=== PATIENT | male | born 1950 | race Caucasian/White ===

== ENCOUNTER 2020-01-21 02:39 | Inpatient (IN) ==
[2020-01-21] MEDS ORDERED: AMIDATE IV ONE (03:11)
[2020-01-21] MEDS ORDERED: QUELICIN IV ONE (03:11)
[2020-01-21] MEDS ORDERED: ROCEPHIN 1 GM in NS 50 ML IV ONE (03:15)
[2020-01-21] MEDS ORDERED: ZITHROMAX 500 MG/NS 500 MG/250 ML IVPB IV ONE (03:15)
[2020-01-21] MEDS ORDERED: LR 1,000 ML IV ONE (03:15)
[2020-01-21 03:22] LABS: BASO# 0.05 X1000 (0.0-0.2); BASO% 0.3 % (0.0-0.8); EOS# 0.01 X1000 (0.0-0.7); EOS% 0.1 % (0.0-10.0); HEMATOCRIT 54.4 % (42.0-52.0); HEMOGLOBIN 17.8 g/dL (14.0-18.0); IMM GRAN# 0.06 X1000 (0.0-0.04); IMM GRAN% 0.4 % (0.0-0.5); LYMPH# 2.39 X1000 (1.2-3.4); LYMPH% 14.5 % (20.5-51.1); MCH 32.2 PG (27-31); MCHC 32.7 g/dL (33-37); MCV 98.4 FL (81-99); MONO# 0.71 X1000 (0.11-0.59); MONO% 4.3 % (1.7-9.3); NEUT% 80.4 % (42.2-75.2); PLT 300 X1000 (130-400); RBC 5.53 XMIL (4.7-6.1); RDW 12.8 % (11.5-14.5); WBC 16.52 X1000 (4.8-10.8)
[2020-01-21] MEDS ORDERED: DIPRIVAN 1% 1,000 MG/100 ML BOTTLE ONE (03:36)
--- NOTE | 2020-01-21 03:55 | PROVIDER DOCUMENTATION ---
HPI-Respiratory General - General Chief Complaint: Shortness of Breath Stated Complaint: respiratory failure Time Seen by Provider: 01/21/20 03:09 Source: family, EMS Unable to obtain history due to:: altered Allergies/Adverse Reactions: Patient Allergies Allergy/AdvReac Type Severity Reaction Status Date / Time No Known Allergies Allergy Verified 01/21/20 04:16 Home Medications: Home Medication List Medication Instructions Recorded Confirmed Last Taken Type NK [No Home Medications] 01/21/20 01/21/20 Unknown History - History of Present Illness-Resp Nature of Presenting Problem: Patient presents via EMS. History per the . states that patient works around people who have been febrile. notes that her adult children and grandchildren have also been at their home in the past week. patient came home from work yesterday, noting that he "didn't feel good." had patient to quarantine himself away from others in the home. Per , patient called her today to tell her that he was having trouble breathing and had a productive cough. decided that she would bring him to the ED, but found patient in the floor with decrased LOC and "gasping for air." She called 911 and they discovered patient with O2 sat in the 50s%. Severity in ED: reports: severe Onset/Duration: reports: just prior to arrival Timing: reports: getting worse Context: reports: other (possible sick contact) Cough Quality/Degree: reports: severe, productive cough Episode Frequency: no prior episodes Current Respiratory Medication Therapy: Initiated none Modifying Factors: improves with: nothing Associated Symptoms: reports: cough Similar Symptoms Previously?: No Recently seen or treated by another doctor?: No Review of Systems - Adult - REVIEW OF SYSTEMS - ADULT ROS:: unobtainable per condition Constitutional: reports: no symptoms reported Past History - Adult - PAST MEDICAL HISTORY-ADULT Review of Records: reports: Old Records Reviewed, Nursing Assessment Review, Medications Reviewed, Social history reviewed & non-contributory. Major Childhood Illnesses: reports: denies history Cardiovascular: reports: denies history Respiratory: reports: denies history Gastrointestinal: reports: denies history Obstetrical/Gynecological: reports: denies history Genitourinary: reports: denies history Musculoskeletal: reports: denies history Neurological: reports: denies history Endocrine/Immune: reports: denies history Other Conditions: reports: denies history - IMMUNIZATION STATUS Childhood Immunizations: See Nurse Assessment Flu Vaccine: See Nurse Assessment - FAMILY HISTORY Family History: reviewed, not pertinent Physical Exam-General - PHYSICAL EXAM-ADULT Initial Vital Signs Reviewed: Yes - CONSTITUTIONAL General Appearance: severe distress, obtunded, other (diaphoretic) - HEAD, EARS, NOSE, MOUTH & THROAT HENMT: normocephalic/atraumatic - NECK Neck: full range of motion - RESPIRATORY Respiratory: respiratory distress, crackles - CARDIOVASCULAR Cardiovascular: tachycardia - GASTROINTESTINAL (ABDOMEN) Abdominal Exam: normal bowel sounds - SKIN Integumentary: normal turgor, diaphoresis Progress - PLAN OF CARE/RESULTS Progress/Plan/Lab Results: Vital Signs - 8 hr 01/21/20 02:45 01/21/20 02:55 Temperature 99.9 F H Pulse Rate 128 H 130 H Respiratory Rate 24 18 Blood Pressure 102/90 101/78 O2 Sat by Pulse Oximetry 87 L 01/21/20 04:20 Influenza Screen - Final Nasopharyngeal Laboratory Results - last 24 hr 01/21/20 01/21/20 01/21/20 02:55 02:55 02:55 WBC 16.52 H RBC 5.53 Hgb 17.8 Hct 54.4 H MCV 98.4 MCH 32.2 H MCHC 32.7 L RDW Std Deviation 12.8 Plt Count 300 MPV 11.0 H Immature Gran % (Auto) 0.4 Neut % (Auto) 80.4 H Lymph % (Auto) 14.5 L [place] % (Auto) 4.3 Eos % (Auto) 0.1 Baso % (Auto) 0.3 Immature Gran # (Auto) 0.06 H Neut # (Auto) 13.30 H Lymph # (Auto) 2.39 [place] # (Auto) 0.71 H Eos # (Auto) 0.01 Baso # (Auto) 0.05 Sodium 135 L Potassium 4.0 Chloride 94 L Carbon Dioxide 18 L Anion Gap 23 BUN 12 Creatinine 1.3 H Estimated GFR/1.73 m2 55 BUN/Creatinine Ratio 9 Glucose 369 H Calculated Osmolality 285 Calcium 9.2 Total Bilirubin 1.13 H AST 198 H ALT 39 Alkaline Phosphatase 111 Creatine Kinase 2207 H Creatine Kinase Index 13.6 H CK-MB (CK-2) 300.00 H Total Protein 6.8 Albumin 4.5 Globulin 2.3 Albumin/Globulin Ratio 2.0 Plasma Lactate 7.5 H* Orders Category Date Time Status Isolation Precautions Setup NOW Care 01/21/20 05:13 Active NEWS Score 2-4:Order NEWS Lactate Series NOW Care 01/21/20 03:10 Active Nursing [Misc. NRSG Communication Order] DIRECTED Care 01/21/20 03:09 Acti ve CHEST-1 VIEW [RAD] Stat Exams 01/21/20 03:[address] THORAX W/CONTRAST [CT] Stat Exams 01/21/20 03:38 Taken ABG [RESP] Routine Lab 01/21/20 04:59 Ordered BLOOD CULTURE [BLDCUL] Stat Lab 01/21/20 05:05 Ordered CBC WITH ELECTRONIC DIFF [HEME] Stat Lab 01/21/20 02:55 Completed CK PROFILE [SP CHEM] Stat Lab 01/21/20 02:55 Completed COMPREHENSIVE METABOLIC PANEL [CHEM] Stat Lab 01/21/20 02:55 Completed INFLUENZA SCREEN A/B Stat Lab 01/21/20 04:20 Completed LACTATE, PLASMA [CHEM] Stat Lab 01/21/20 02:55 Completed SPUTUM CULTURE WITH GRAM STAIN [RM] Stat Lab 01/21/20 03:14 Uncollected Strep [DIRECT STREP] Stat Lab 01/21/20 Ordered TROPONIN T HIGH SENSITIVITY Stat Lab 01/21/20 02:55 Received URINALYSIS [URINALYSIS] Stat Lab 01/21/20 05:00 Ordered Azithromycin 500 mg/Ns [Zithromax 500 mg/Ns] Med 01/21/20 03:15 Discontinued 500 mg in 250 ml IV NOW CefTRIAXONE [Rocephin] 1 gm Med 01/21/20 03:15 Discontinued 0.9% Sodium Chloride Inj [Ns] 50 ml IV NOW Etomidate [Amidate] Med 01/21/20 03:11 Discontinued 50 mg IV NOW ONE Lactated Ringers Inj [Lr] 1,000 ml Med 01/21/20 03:15 Discontinued IV 999 mls/hr Propofol [Diprivan 1%] Med 01/21/20 04:43 Discontinued 10 mg IV NOW ONE Propofol [Diprivan 1%] Med 01/21/20 03:36 Discontinued 1,000 mg in 100 ml .ROUTE As directed Propofol [Diprivan 1%] Med 01/21/20 04:45 Active 1,000 mg in 100 ml IV As Directed mls/hr Succinylcholine [Quelicin] Med 01/21/20 03:11 Discontinued 100 mg IV NOW ONE Isolation Setup - Supply Stat Oth 01/21/20 05:13 Ordered Result Diagrams: 01/21/20 02:55 01/21/20 02:55 Departure - Departure Date of Disposition Decision: 01/21/20 Time of Disposition Decision: 05:15 DIAGNOSIS: Respiratory failure Qualifiers: Chronicity: acute Respiratory failure complication: hypoxia Qualified Code(s): J96.01 - Acute respiratory failure with hypoxia Pneumonia Qualifiers: Pneumonia type: due to unspecified organism Laterality: bilateral Lung location: unspecified part of lung Qualified Code(s): J18.9 - Pneumonia, unspecified organism Disposition: ADMITTED INPATIENT 09 Certified Medical Emergency: Emergent Condition: Stable Referrals and Follow-Ups: None,PCP [Primary Care Provider] - - Critical Care Note This patient required my direct & personal management of CC.: Yes Total Time (mins): 30 Critical Care Statement: This patient required my direct personal management to treat or rule out processes, the absence of which, could potentiallly result in sudden, clinically significant life or limb threatening deterioration. Attestation - Physician/ PADMINI Attestation Patient care was provided by Advanced Practice Provider:: No The physician spent face to face time with patient:: Yes Advanced Practice Provider documentation review:: Supervising physician onsite and consulted in the evaluation and care of this patient. The physician did have a face to face encounter with the patient.
[2020-01-21 03:59] LABS: ALBUMIN 4.5 g/dL (3.5-5.0); CALCIUM 9.2 mg/dL (8.8-10.2); CREATININE 1.3 mg/dL (0.7-1.2); TOTAL BILIRUBIN 1.13 mg/dL (0.20-1.00); TOTAL PROTEIN 6.8 g/dL (6.3-8.3)
[2020-01-21 04:29] LABS: CK INDEX 13.6 (0.0-2.5)
[2020-01-21] MEDS ORDERED: DIPRIVAN 1% IV ONE (04:43)
[2020-01-21] MEDS ORDERED: DIPRIVAN 1% 1,000 MG/100 ML BOTTLE IV SCH (04:45)
[2020-01-21 05:19] LABS: ALLEN TEST YES; BLOOD TYPE ARTERIAL; HCO3-(ACT) 12.1 mmoll (20.0-26.0); METHB 0.4 % (0.0-1.5); O2(CT) 17.5 mL/dL (15.0-23.0); SAMPLE BLOOD; SRATE 15 BPM; THB 18.4 g/dL (11.5-17.4); TVOL 550 mL
[2020-01-21 05:27] LABS: PCO2(98.6) 98 mmHg (35-45); pH(98.6) 6.93 (7.35-7.45)
[2020-01-21 05:28] LABS: MODALITY VENTILATOR; O2HB 67.9 % (95.0-99.0); PO2(98.6) 46 mmHg (60-100)
[2020-01-21 05:55] LABS: URINE SOURCE CATH
[2020-01-21 06:10] LABS: BILIRUBIN URINE NEGATIVE (NEGATIVE); BLOOD URINE MODERATE (NEGATIVE); COLOR YELLOW; GLUCOSE URINE >1000 mg/dL (NEGATIVE); KETONE URINE 10 mg/dL (NEGATIVE); LEUKOCYTES URINE NEGATIVE (NEGATIVE); NITRITE URINE NEGATIVE (NEGATIVE); PROTEIN URINE 300 mg/dL (NEGATIVE); SP GRAVITY URINE 1.018; TURBIDITY URINE HAZY (CLEAR); UROBILINOGEN URINE NORMAL (NORMAL)
[2020-01-21] MEDS ORDERED: HEPARIN IV ONE ×2 (06:10→09:18)
[2020-01-21 06:15] LABS: UR EPITHELIAL CELLS <10 /HPF (<10); URINE BACTERIA NEGATIVE /HPF; URINE RBC <10 /HPF (<10); URINE WBC <10 /HPF (<10)
[2020-01-21] MEDS ORDERED: HEPARIN 25,000 UNITS/D5W 25,000 UNIT/250 ML IV.SOLN IV SCH (06:15)
[2020-01-21 06:23] LABS: URINE CRYSTALS NONE SEEN
--- NOTE | 2020-01-21 07:11 | Diag Imaging Result Doc PS360 ---
EXAM: CHEST-1 VIEW HISTORY: ETT placement TECHNIQUE: Two views COMPARISON: None. FINDINGS: There is an endotracheal tube in good position located 4 cm above the sharla. There is diffuse bilateral infiltrates. No cardiomegaly. No pleural effusions identified. IMPRESSION: Endotracheal tube in good position. Electronically signed by Rafael Stephens 01/21/2020 7:09 AM
[2020-01-21] MEDS ORDERED: LEVOPHED 8 MG in D5 1/2 NS 250 ML IV SCH (07:15)
[2020-01-21 07:22] LABS: INR 1.03; PROTIME 13.7 Seconds (11.0-16.0)
[2020-01-21 07:23] LABS: PTT 29.3 Seconds (22.3-41.8)
--- NOTE | 2020-01-21 08:13 | Diag Imaging Result Doc PS360 ---
EXAM: CT THORAX W/CONTRAST 01/21/2020 HISTORY: bilateral infiltrates TECHNIQUE: This exam was performed using automated exposure control, adjustment of mA or kV according to patient size, and/or use of iterative reconstruction technique. COMMENT: There is an endotracheal tube with its tip well above the sharla. There is no evidence of significant adenopathy. The aorta is normal in caliber. There are no filling defects in the pulmonary arteries. There is extensive calcification of the left anterior descending artery. The left ventricle is distended as is the left atrium. There is some reflux of contrast into the inferior vena cava and hepatic veins. There are bilateral pleural effusions. There is a cyst arising from the upper pole of the left kidney. There are several apparent hepatic cysts. There is dense alveolar opacification of both upper lobes and most of both lower lobes. There is some apparent groundglass opacity in the right middle lobe and lingula as well as nodular opacities. There is some motion artifact. The regional skeleton appears to be intact. IMPRESSION: Diffuse bilateral pulmonary consolidation with areas of groundglass opacity and noncalcified nodules. The possibility of atypical pneumonia or aspiration cannot be excluded. Electronically signed by Raghavendra Johns 01/21/2020 8:10 AM
--- NOTE | 2020-01-21 08:14 | HISTORY AND PHYSICAL ---
CHIEF COMPLAINT: Passed out. HISTORY OF PRESENTING COMPLAINT: The patient is a 69-year-old male with no known previous medical condition, who presents with an episode of passing out that required him to be brought in by EMS. History was essentially from the , who provided a history to the ER. As such, history is that of ER signou from the . The stated the patient has been around people that have been febrile. The patient was noted to have said that he was not feeling good but no documentation of any temperature. As such, probably just subjective fever the patient had. The patient tried to quarantine himself away from others in the house because he has been around febrile people in the past, although no known positive Covid-19 patients that the patient has been in contact with. No history of any domestic or international travel recently. The patient was planning to come to the ED but suddenly found the patient on the floor with loss of consciousness and the patient was gasping for air. Then 911 was called and discovered that the patient's O2 saturation was in the 50s. In the ER, the patient was emergently intubated. During intubation, there was a large amount of copious purulent fluid that was aspirated from the intubation, which was sent for Covid-19 testing. The hospitalist team was called to admit the patient. No known history of any chest pain or palpitations. No known history of any previous cardiac problems. ALLERGIES: No known drug allergies. HOME MEDICATIONS: No known home medications. PAST MEDICAL HISTORY: No known previous significant past medical history. FAMILY HISTORY: Could not obtain family history as the patient was already intubated at the time of seeing this patient. SOCIAL HISTORY: The patient does not smoke as documented in the medical record but could not ascertain this from the patient. REVIEW OF SYSTEMS: Could not be done as patient was already intubated at the time that I was seeing the patient. PHYSICAL EXAMINATION: VITAL SIGNS: Blood pressure was 102/90, temperature was 99.9 degrees, pulse was 128, respiratory rate was 24 and the patient was intubated to maintain adequate oxygenation and to keep respiratory airway intact. GENERAL EXAMINATION: This is an elderly male, intubated to a RASS of -1. HEENT: Not pale, anicteric, acyanosis. Mildly moist oral mucosa. CVS: S1, S2 heard. No murmurs, rubs, or gallops. RESPIRATORY: Mechanical breath sounds heard. No crepitations. No added sounds. No wheeze. ABDOMEN: No area of tenderness. Bowel sounds normoactive. No organomegaly noted. EXTREMITIES: No bilateral pedal edema noted. NEUROLOGIC: Sedated to a RASS of -2, on mechanical ventilation. SKIN: No significant skin changes noted. LABS: WBC was 16.52, hemoglobin 17.8, hematocrit 54.4, platelets are 300,000, lymphocyte percentage is 14.5, and lymphocyte count is 2.39. ABG: PH of 6.93, pCO2 of 98, PO2 was 46. CMP: Sodium 135, potassium 4, chloride 94, bicarb of 18, anion gap was 23, BUN 12, creatinine 1.3, glucose 369. Total bilirubin 1.13, AST 198, ALT 39, alkaline phosphatase 111. Creatine kinase 2207, CK-MB 300, troponin T 1398. Lactate 7.5. UA was positive for glucose greater than 1000, protein 300, blood moderate, and RBCs 10. Rapid group strep throat done was negative. Chest x-ray shows multifocal bilateral infiltrates noted. A CT of the chest done shows multiple infiltrates in both lungs in a peribronchial fashion. EKG shows a left bundle branch block with no significant ST-T changes, also interventricular conduction delays in all leads. No previous EKG to compare with. ASSESSMENT AND PLAN: This is a 69-year-old with no previous known medical condition, who has had exposure to people who have been febrile, although no confirmed positive Covid- 19 patients, who was suddenly found on the ground, gasping for air. The patient was noted to be desaturating and required emergent intubation with production of copious purulent material at the time of intubation. Workup showed a left bundle branch block on EKG, which is unclear if this is new as there is no previous EKG. Markedly elevated troponin T and leukocytosis and lactic acid as well. ACUTE DIAGNOSES: 1. Acute coronary syndrome. 2. Suspected Covid-19 infection. 3. Bilateral multifocal pneumonia. 4. Transaminitis. 5. Acute kidney injury. 6. Hyperglycemia, possibly newly diagnosed diabetes mellitus. 7. Acute hypoxic hypercapnic respiratory failure s/p Mechanical ventilation 8. Hyperbilirubinemia PLAN: 1. Acute coronary syndrome: The patient's EKG findings with markedly elevated troponin, with EKG of left bundle branch block and the patient is not known to have any previous medical condition, is suspicious that this is probably a new left bundle branch block. As such, this may be an ACS. We will consult cardiology. We will start the patient on full ACS protocol with aspirin, statin, heparin, beta tank. Holding off on any EILEEN inhibitors at this time because blood pressure is running on the low side, clopidogrel as well. We will trend troponin q.6 hours x2. We will trend EKG q.6 hours x2 and we will monitor closely. 2. Suspected Covid-19 infection. Although the patient is not febrile, but given a history of exposure to supposedly febrile people at work who are not known to be positive for Covid-19 patients, already in the emergency room, the patient was already screened for Covid-19 using the bronchial aspirate during intubation. We will continue with contact precautions, droplet precautions. Symptomatic treatment with Tylenol and the patient is already intubated. We will consult pulmonology to follow. 3. Acute hypoxic hypercapnic respiratory failure s/p Mechanical ventilation. The patient is already intubated. Arterial blood gases concerning for hypoxic, hypercarbic, hypercapnic respiratory failure. We will consult pulmonology. We will maintain adequate ventilation using mechanical ventilator. 4. Acute kidney injury. We will hydrate the patient with intravenous fluid, normal saline. I expect kidney functions to trend down to baseline. 5. Hyperglycemia, likely newly diagnosed diabetes. The patient is hyperglycemic with markedly elevated glucose. We will check an A1c. Suspect most likely the patient will be a newly diagnosed diabetic patient. This is also a risk factor for patients with acute coronary syndrome. 6. Transaminitis. Could not ascertain if the patient is a known alcoholic but AST/ALT ratio is in the alcohol pattern. Suspect most likely the patient is alcoholic. Otherwise, it could be due to a back fkow effect from pooor cardiac output following a massive AMI due to hepatic congestion. Monitor closely. 7. Bilateral multifocal pneumonia. Chest x-ray and CT chest suspicious for this, although this may be a complication of a massive heart attack causing flash pulmonary edema but given lactic acidosis and leukocytosis, we will start the patient on broad-spectrum antibiotics with vancomycin and Zosyn, and we will titrate down based on blood culture results and sputum culture results as well. 8. Hyperbilirubinemia. We will check a direct bilirubin level to ascertain if this is an obstructive pattern but I doubt this since alkaline phosphatase is not markedly elevated. Deep venous thrombosis prophylaxis. The patient is on a heparin drip. Code status. Cannot ascertain as the patient was already intubated. DISPOSITION: Admit patient to ICU. We will discharge when medically stable. The patient will need a long ICU stay for treatment. [facility] MEDICAL CENTERMarquita
--- NOTE | 2020-01-21 08:16 | EKG Report ---
Test Performed on : 01/21/2020 02:59:44 AM Test Reason : ACUTE CORONARY SYNDROME Blood Pressure : / mmHG Vent. Rate : 117 BPM Atrial Rate : 117 BPM P-R Int : 144 ms QRS Dur : 172 ms QT Int : 388 ms P-R-T Axes : 000 048 187 degrees QTc Int : 541 ms Sinus tachycardia. Left bundle branch block Abnormal ECG No previous ECGs available Unconfirmed Result
[2020-01-21] MEDS ORDERED: ZOSYN 3.375 GM in NS 50 ML IV SCH (08:49)
[2020-01-21] MEDS ORDERED: TYLENOL PO PRN (08:49)
[2020-01-21] MEDS ORDERED: PLAVIX PO SCH (08:49)
[2020-01-21] MEDS ORDERED: ZOFRAN IV PRN (08:49)
[2020-01-21] MEDS ORDERED: NS 1,000 ML IV ONE (08:49)
[2020-01-21] MEDS ORDERED: ASPIRIN PO STA (08:49)
[2020-01-21] MEDS ORDERED: VANCOMYCIN IV PER PHARMACY MISC SCH (08:49)
[2020-01-21] MEDS ORDERED: PRINIVIL PO SCH (09:00)
[2020-01-21] MEDS ORDERED: LOPRESSOR PO SCH (09:00)
[2020-01-21] MEDS ORDERED: NS 2,000 ML ONE (09:40)
[2020-01-21] MEDS ORDERED: LEVAQUIN 500 MG/D5W 500 MG/100 ML IVPB IV SCH (10:00)
[2020-01-21] MEDS ORDERED: NS 250 ML ONE (10:04)
[2020-01-21 10:07] LABS: HEMOGLOBIN A1C 5.6 % (4.8-6.0)
[2020-01-21] MEDS ORDERED: DOPAMINE 800 MG/D5W 800 MG/500 ML IV.SOLN ONE (10:21)
[2020-01-21 10:22] LABS: C REACTIVE PROT QUANT 30.18 mg/L (0.00-5.00)
[2020-01-21] MEDS ORDERED: EPINEPHRINE 4 MG in NS 250 ML IV SCH (10:45)
[2020-01-21] MEDS ORDERED: ZYVOX 600 MG/D5W 600 MG/300 ML IVPB IV SCH (11:00)
[2020-01-21 11:06] LABS: CK-MB 519.8 ng/mL (0.0-5.0)
[2020-01-21 11:08] LABS: CK INDEX 12.4 (0.0-2.5)
[2020-01-21] MEDS ORDERED: CORDARONE 150 MG/D5W 150 MG/100 ML IV.SOLN ONE (11:25)
--- NOTE | 2020-01-21 12:20 | PROGRESS NOTE ---
DATE: 01/21/2020 ADDENDUM: Mr. Feliciano coded again as I was dictating the previous note. He was coded for approximately 10 minutes. All we had was PEA and asystole with no pulse. After the 10 minute celio, we got return of spontaneous circulation but that lasted just for about 2 minutes and then he coded again. I think he has been coded for a total of over 30 minutes and he is not showing any signs of vitality. I stepped out. I spoke with the who had just come in with the palliative nurse, Ms. Tavarez. The is an ex-nurse and does understand what is going on. After over 30 minutes of resuscitation efforts that have been unfruitful, she is recommending that we discontinue CPR and ACLS protocol. The resuscitation team was notified and this was aborted. Mr. Feliciano currently, on his physical exam, his pupils are dilated and they are not responsive to light. He does not have any corneal reflex. He does not show any gag reflex. No evidence of brainstem activity. No evidence of cortical activity. There is no respiratory effort since the ET tube is removed. He also has no heart sounds. Mr. Feliciano is pronounced on 01/21/2020 at 11:38, is when everything was stopped. Family member is notified. ASSESSMENT: 1. Refractory shock, presumably cardiogenic. 2. Elevated liver enzymes associated with new left bundle branch block on electrocardiogram, abnormal echocardiogram, at least the preliminary report. These are all concerning for coronary artery disease, presumably a massive myocardial infarction. 3. Acute hypoxemic respiratory failure with imaging, suspicious of acute respiratory distress syndrome. There is a concern for Covid-19. Testing has been done. Unfortunately, it has to take some time before we get it. 4. Severe anion gap metabolic acidosis due to lactic acid from hypoperfusion, presumably cardiogenic in etiology. However, underlying sepsis cannot be entirely ruled out. Patient was already on antibiotics. 5. Multiorgan failure. cc: Juan A Abbott MD Critical time 1:[address] [facility]
--- NOTE | 2020-01-21 12:20 | CARDIOLOGY CONSULTATION ---
DATE: 01/21/2020 The patient's history was obtained from the chart. The patient was intubated and transferred to the ICU. HISTORY OF PRESENT ILLNESS: This 69-year-old gentleman was passed out at home. He was brought in by EMS. History was obtained from the chart and this was obtained from his . The gentleman had been in good health and was noted to not be feeling good for the last couple of days and had been febrile with subjective fevers. The patient tried to quarantine himself. No history of domestic or international travel. He came to the Emergency Room when the suddenly found him on the floor and 911 was called. The patient was intubated and had large copious purulent expectoration and aspirated during intubation. The patient this morning had multiple episodes of pulseless electrical activity and had been coded multiple times. He is on 3 pressors and cardiac arrest code was called following the standard protocol. ALLERGIES: No known drug allergies. REVIEW OF SYSTEM: A 14-point review of systems could not be obtained from the patient. PAST MEDICAL HISTORY: Not significant. SOCIAL HISTORY: The patient does not smoke. He lives at home. PHYSICAL EXAMINATION: Vital Signs: Blood pressure on multiple medications is 90/70 and blood pressure had dropped to 60 systolic and currently he is on multiple pressors. Neck: Jugular venous pressure could not be assessed when I saw him. Cardiovascular: First and second heart sounds were heard. Respiratory: Bibasilar crepitations are noted. Gastrointestinal: The abdomen was soft. The patient was intubated. Central nervous system assessment was not performed. ASSESSMENT AND PLAN: Mr. Raghavendra Feliciano is a 69-year-old gentleman who was healthy. He has a left bundle branch block. He had 2 days of not feeling well, feverish, and had an episode of a febrile feeling. The patient collapsed and EMT was called and the patient was intubated. CT scan results revealed multiple infiltrates in both lungs in the peribronchial region, pneumonia versus edema. ELECTROCARDIOGRAM: Left bundle branch block. WBC is 16.5, hemoglobin 17.8, hematocrit 54, and platelet count 300,000. Sodium is 135, potassium 4, chloride 94, bicarb 18, anion gap 23, BUN 12, creatinine 1.3, total bilirubin 1.13, AST 198, ALT 39, alkaline phosphatase 111, creatine kinase 2207, CK-MB 3, troponin T 1398, and lactate 7.5. ECHOCARDIOGRAM: Severe LV dysfunction. Please see detailed echocardiogram report. DIAGNOSES: 1. Suspected Coronavirus infection. Results are pending. 2. Bilateral multifocal pneumonia vs pulmonary edema 3. Transaminitis. 4. Acute kidney injury. 5. Acute coronary syndrome. Left ventricular dysfunction please see detailed report with LBBB 6. The patient has had multiple episodes of cardiac arrests requiring cardiopulmonary resuscitation and per standard protocol is on epinephrine, Levophed, and a dopamine drip. Blood pressure is 70 systolic. The hospitalist service is going to discuss the code status with the patient's family. 7. The patient has bilateral multifocal pneumonia. This could be pneumonia versus and associated pulmonary edema. 8. Poor prognosis. cc: Michael Cassidy MD MTDD
[2020-01-21 12:47] VITALS: BP 82/48
--- NOTE | 2020-01-21 13:30 | PULMONOLOGY PROGRESS NOTE ---
DATE: 01/21/2020 The patient is a 69-year-old male who had presented to the emergency room with florid hypoxemic respiratory failure and was in ICU bed #4 on mechanical ventilation. I was seeing a patient in the ICU bed 3. I was already in a full isolation PPE when a Code Blue was called on Mr. Feliciano who was in ICU bed #4 in COVID-19 isolation. I proceeded from 1 room to the other to assist in CPR while other team members gowned and prepared to enter the room. CPR was initiated along with advanced cardiac life support. See the ACLS protocol sheet. After several rounds of CPR and epinephrine, he did regain spontaneous circulation. I remained in the room while an echocardiogram was performed which revealed diffuse hypokinesis. I made minor adjustments to the patient's ventilator and subsequently exited his care. Time spent in critical care management: 55 minutes. cc: Ant Benton MD MTDD
--- NOTE | 2020-01-21 13:32 | ECHO REPORT ---
ORDER DATE: 01/21/2020 INDICATION FOR THE STUDY: Code. FINDINGS: This is a very limited study. Only 12 images were obtained. 1. Severe LV dysfunction. The estimated EF is difficult to estimate due to the limited number of views. The ejection fraction is less than 20%. Markedly hypokinetic globally. LV chamber size appears normal. 2. No pericardial effusion identified. 3. Normal IVC size. 4. Poor views of the right ventricle but it does appear to be hypokinetic. cc: MD Reema Harry PA MTDD
[2020-01-21] MEDS ORDERED: LIPITOR PO SCH (21:00)
--- NOTE | 2020-01-22 03:48 | PROGRESS NOTE ---
DATE: 01/21/2020 SUBJECTIVE: I have seen and examined Mr. Feliciano today. Earlier this morning somewhere around 10, a code blue was called in the ICU because Mr. Feliciano had lost pulse. He was already under the ventilator from earlier on today, CPR was started. By the time I came, a lot of the ICU staff were attending to the code. Dr. Benton and Dr. Cassidy were also in the code and my colleague, Dr. Calderon, was also in the unit. The code went on for about 46 minutes, total of 2 of epinephrine were given and a return of spontaneous circulation was obtained. Subsequently, a bedside echocardiogram was done which we are still pending the official report. The patient was already on Levophed drip, both dopamine and epinephrine drips have also been started. OBJECTIVE: Vital signs: Current vitals, blood pressure 105/70, pulse of 123, respiration is 23, temperature is 96.7 degrees. General Exam: Mr. Feliciano is a 69-year-old male. He is in bed. He is currently intubated not on any sedation. HEENT: Mucosa is pink and moist. Anicteric. Acyanotic. Neck: Supple. Chest: Air entry is bilaterally reduced with some transmitted sounds from the ventilator. I did not hear any crackles. Cardiovascular: Regular rate and rhythm. Abdomen: Soft. Bowel sound is present. There is an old scar on the right flank. Extremities: No pedal edema. The patient is extremely cold with delayed capillary refill in the lower extremities. Central Nervous System: Patient is currently intubated. He is nonresponsive. Pupils are pinpoint, minimally sluggishly responsive. LABORATORY DATA: WBC is 16.52, hemoglobin of 17.8, platelet count of 300,000. Chemistry is also reviewed, AST is slightly elevated, creatinine is 1.3. We do not have previous lab to compare. The patient's cardiac enzymes are all remarkably elevated. An EKG shows a new onset a left bundle branch block. A CT scan of the chest did show diffuse bilateral pulmonary consolidation with areas of ground- glass opacities. cc: Juan A Abbott MD [facility]
[2020-01-22] MEDS ORDERED: ASPIRIN EC PO SCH (09:00)
--- NOTE | 2020-01-22 16:35 | DISCHARGE SUMMARY ---
ADMISSION DATE: 01/21/2020 DISCHARGE DATE: 01/21/2020 TIME OF : 11:38. DIAGNOSIS ON ADMISSION: 1. Suspected coronavirus disease 2019. 2. Acute hypoxemic hypercarbic respiratory failure. 3. Acute kidney injury. 4. Hyperglycemia. 5. Transaminitis. 6. Bilateral multifocal pneumonia. 7. Hyperlipidemia. DIAGNOSIS AT THE TIME OF : 1. Refractory shock, presumably cardiogenic shock. 2. Elevated troponins associated with new left bundle branch block and abnormal echocardiogram. All suggestive of coronary artery disease, presumably a massive NV. 3. Acute hypoxemic respiratory failure with imaging features suspicious of ARDS. Coronavirus disease 2019 suspected. 4. Severe high anion gap metabolic acidosis due to lactic acid from hypoperfusion, presumably cardiogenic in etiology. However, underlying sepsis could not be entirely ruled out. 5. Multi organ failure. PRESENTING COMPLAINT: Passed out. HISTORY OF PRESENTING COMPLAINT: Mr. Feliciano is a 69-year-old gentleman with no past medical history, presents with 2 days of generalized low feelings. The day prior to presentation, he had some nauseation and generalized weakness. He was asked to isolate himself because of what is going on. The patient did not have any contact with anybody who has been diagnosed with COVID and nobody around him also had fever. In any case, on the day of admission, he started having more difficulty breathing so the went to check on him to bring him to the emergency room. Unfortunately, by the time she got dressed to go for him, he had already called EMS because of worsening shortness of breath. We understand that the patient was saturating in the low 50s in the ambulance. By the time he arrived at the ER, he was almost obtunded, remarkably hypoxemic, so he was intubated right away. Coronavirus disease 2019 testing was done and patient was transferred to the ICU. Laboratory data revealed that he had leukocytosis. He seems to be hemoconcentrated and he did have some abnormal renal function test. He was severely acidotic. ABGs were done which showed pCO2, pH of 6.92, pCO2 of 98, PO2 of 46. Unfortunately, in the morning of the following day, he had kurt down, went into PEA, lost pulse and resuscitation efforts were started. Unfortunately, after multiple rounds of resuscitation, the patient unfortunately was not able to make it. The decided after about 3 different types of coding to leave him. At that time Mr. Castillo had very dilated pupils, was not showing any signs of brainstem activity. No cortical activity. Once she said we should stop, the patient was re-evaluated. He was mottled all over. He did not have any remote signs of vitality. He was subsequently pronounced . The was notified and arrangements were made to take him to a home. cc: Juan A Abbott MD
== END 2020-01-21 11:38 | disposition expired | DRG 871 ==
LOC: EDBD → ED 02:39 → MERGE 07:28 → ICU 07:28 → SUATTDRO 07:28
PROVIDERS: ATTEND Internal Medicine